=== PATIENT | female | born 1995 | race Caucasian/White ===

== ENCOUNTER 2016-11-10 02:15 | Emergency (ER) | payer MEDICAID ==
[~2016-11-10] VITALS: Ht 162.6 cm; Wt 68.0 kg
[2016-11-10] MEDS ORDERED: SODIUM CHLORIDE 0.9% 1,000 ML IV ONE (09:14)
[2016-11-10] MEDS ORDERED: ONDANSETRON HCL 4MG/2ML VIAL IV STA (09:14)
[2016-11-10] MEDS ORDERED: FAMOTIDINE 20MG/2ML VIAL IV STA (09:14)
[2016-11-10 09:49] LABS: HEMOGLOBIN. 12.3 g/dL (12.0-16.0); MEAN CORPUSCULAR HEMOGLOBIN 30.6 pg (28.0-32.0); MEAN CORPUSCULAR HGB CONC 34.1 g/dL (31.0-37.0); MEAN CORPUSCULAR VOLUME 89.6 fL (81.0-99.0); MEAN PLATELET VOLUME 8.2 fl (7.4-10.4); PLATELET 256 x1000/uL (130-400); RED BLOOD CELL COUNT 4.02 mill/uL (4.2-5.4); RED CELL DISTRIBUTION WIDTH 13.3 % (11.6-14.6); WHITE BLOOD COUNT 9.6 x1000/uL (4.5-11.0)
[2016-11-10 09:53] LABS: DIFFERENTIAL COMMENT 1
[2016-11-10 09:54] LABS: CHLORIDE 105 mEq/L (98-107); INDEX HEMOLYSI 1 (1-3); INDEX ICTERIC 1 (1-4); INDEX LIPEMIC 1 (1-3)
[2016-11-10 10:03] LABS: ALANINE AMINOTRANSFERASE 31 IU/L (13-61); ALBUMIN 3.6 g/dL (3.4-5.0); ANION GAP 12; CALCIUM 7.5 mg/dL (8.5-10.1); CARBON DIOXIDE 27 mEq/L (21-32); HCG SCREEN NEGATIVE; LIPASE 70 IU/L (73-393); UREA NITROGEN BLOOD 14 mg/dL (7-21); eGFR > 60 mL/min (>60)
[2016-11-10 10:11] LABS: CLARITY URINE CLEAR (CLEAR); COLOR URINE DARK YELLOW (YELLOW); GLUCOSE URINE NEGATIVE (NEGATIVE); KETONES URINE TRACE (NEGATIVE); LEUKOCYTE ESTERASE URINE TRACE (NEGATIVE); NITRITE URINE NEGATIVE (NEGATIVE); OCCULT BLOOD URINE NEGATIVE (NEGATIVE); PH URINE 5.5 (4.5-8.0); PROTEIN URINE TRACE (NEGATIVE); SPECIFIC GRAVITY URINE 1.035 (1.005-1.030)
[2016-11-10 10:25] LABS: PLATELET ESTIMATE NORMAL
[2016-11-10] MEDS ORDERED: POTASSIUM CHLORIDE 20MEQ TABLET SR PO ONE (10:30)
[2016-11-10] MEDS ORDERED: FAMOTIDINE 20MG/2ML VIAL IV ONE (10:30)
[2016-11-10 10:35] LABS: RBC URINE 0-2 /hpf (0-2)
[2016-11-10 10:36] LABS: BACTERIA URINE TRACE; MUCUS URINE 1+ /lpf (< = 2+); SQUAMOUS EPITHELIAL CELL URINE 1+ /lpf (RARE/1+)
[2016-11-10 13:27] VITALS: BP 122/72
== END 2016-11-10 12:30 | disposition home or self-care (01) ==
LOC: ER 07:45
DX: R10.13 Epigastric pain (principal); R11.2 Nausea with vomiting, unspecified; R19.7 Diarrhea, unspecified; E87.6 Hypokalemia; N39.0 Urinary tract infection, site not specified; K76.9 Liver disease, unspecified
CPT/HCPCS: 36415; 74176; 76705; 80053; 81001; 83690; 84703; 85025; 96361; 96374; 96375; 99285; J2405; J3490; J7030; Z7610

== ENCOUNTER 2021-07-05 17:06 | Emergency (ER) | payer MEDICAID ==
[~2021-07-05] VITALS: Ht 149.9 cm; Wt 71.0 kg
[2021-07-05 17:16] VITALS: BP 122/65
[2021-07-05 17:59] LABS: BASOPHILS % 0.6 % (0.0-2.0); EOSINOPHILS % 1.8 % (0.0-5.0); HEMATOCRIT. 35.9 % (36.0-48.0); HEMOGLOBIN. 12.4 g/dL (12.0-16.0); LYMPHOCYTES % 27.1 % (20.0-50.0); MEAN CORPUSCULAR HEMOGLOBIN 31.1 pg (28.0-32.0); MEAN CORPUSCULAR VOLUME 90.1 fL (81.0-99.0); MEAN PLATELET VOLUME 8.4 fl (7.4-10.4); MONOCYTES % 7.9 % (2.0-8.0); NEUTROPHILS % 62.6 % (40.0-76.0); PLATELET 283 x1000/uL (130-400); RED BLOOD CELL COUNT 3.99 mill/uL (4.2-5.4); RED CELL DISTRIBUTION WIDTH 12.4 % (11.6-14.6)
[2021-07-05 18:02] LABS: CHLORIDE 105 mEq/L (98-107)
[2021-07-05 19:07] LABS: B-HCG QUANTITATIVE 134013 mIU/mL (<3)
[2021-07-06 00:33] LABS: CLARITY URINE CLOUDY (CLEAR); COLOR URINE DARK YELLOW (YELLOW); KETONES URINE TRACE (NEGATIVE); LEUKOCYTE ESTERASE URINE 3+ (NEGATIVE); NITRITE URINE NEGATIVE (NEGATIVE); OCCULT BLOOD URINE 2+ (NEGATIVE); PH URINE 5.5 (4.5-8.0); PROTEIN URINE TRACE (NEGATIVE); SPECIFIC GRAVITY URINE 1.023 (1.005-1.030)
== END 2021-07-06 00:22 | disposition home or self-care (01) ==
LOC: ER 17:06
DX: O26.891 Other specified pregnancy related conditions, first trimester (principal); O36.4XX0 Maternal care for intrauterine death, not applicable or unspecified; O30.91 Multiple gestation, unspecified, first trimester; Z3A.13 13 weeks gestation of pregnancy
CPT/HCPCS: 36415; 76802; 76805; 76810; 80053; 81003; 84702; 85025; 86850; 86900; 99284